=== PATIENT | female | born 1995 | race Caucasian/White ===

== ENCOUNTER → 2017-04-29 | Outpatient (CLI) | payer OTHER ==
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
== END ==
LOC: MRI 14:02
PROVIDERS: ATTEND Specialist
DX: S93.491D Sprain of other ligament of right ankle, subsequent encounter (principal)

== ENCOUNTER 2017-05-24 13:00 | Outpatient (RCR) | payer OTHER | END 2017-05-28 | LOC: PT 13:00 | PROVIDERS: ATTEND Specialist | DX: S93.491D Sprain of other ligament of right ankle, subsequent encounter (principal) ==

== ENCOUNTER 2017-09-15 17:40 | Emergency (ER) | payer OTHER ==
[~2017-09-15] VITALS: Ht 167.6 cm; Wt 70.3 kg
[2017-09-15] MEDS ORDERED: HYDROCODONE/APAP 7.5MG-325MG 1 EA TAB PO PRN (18:00)
[2017-09-15] MEDS ORDERED: ONDANSETRON HCL 4 MG ORAL DISINTEGRATING TAB PO ONE (18:00)
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
--- NOTE | 2017-09-15 19:54 | Diagnostic Imaging Report ---
Examination: CT head without contrast Clinical Indication: Syncope. Technique: Transaxial noncontrast images from the skull base through the vertex were obtained. Sagittal and coronal reformatted images were done. Comparison: None. Findings: Scalp: No abnormalities. Bones: Intact. No fractures. No blastic or lytic lesions. Brain sulci: Appropriate for patient's age. Ventricles: Normal in size and configuration. No hydrocephalus. Extra-axial space: No abnormalities. Parenchyma: No abnormal densities. No masses, hemorrhage, or acute or chronic cortical based vascular insults. Suprasellar region: No abnormalities. Craniocervical junction: The foramen magnum is patent. No Chiari one malformation. Impression: No intracranial abnormality. Signed by: Dr. Renu Centeno M.D. on 09/15/2017 7:51 PM
--- NOTE | 2017-09-15 20:00 | Diagnostic Imaging Report ---
Examination: CT CERVICAL SPINE WITHOUT CONTRAST HISTORY:Neck pain. COMPARISON:None. TECHNIQUE: Multidetector helical axial images were obtained without contrast from the foramen magnum to T1. Coronal and sagittal reformatted images were done. Bone and soft tissue windows were evaluated. FINDINGS: Alignment:Normal alignment with straightening of normal lordosis. Vertebrae: Normal height and density. No acute fracture, infection or neoplasm. Disc space heights: Normal height. Caliber of spinal canal: Developmentally normal. Posterior fossa and craniocervical junction: Foramen magnum patent. No Chiari 1 malformation. Soft tissues: No abnormality. Degenerative changes: No disc bulge/ herniation or foraminal or canal stenosis. IMPRESSION: No abnormalities. Signed by: Dr. Renu Centeno M.D. on 09/15/2017 7:57 PM
== END 2017-09-15 20:24 | disposition home or self-care (01) ==
LOC: ER 17:40
DX: S00.83XA Contusion of other part of head, initial encounter (principal); M54.2 Cervicalgia; S16.1XXA Strain of muscle, fascia and tendon at neck level, initial encounter; R07.89 Other chest pain; M25.531 Pain in right wrist; S80.02XA Contusion of left knee, initial encounter; V43.52XA Car driver injured in collision with other type car in traffic accident, initial encounter; Y92.488 Other paved roadways as the place of occurrence of the external cause
CPT/HCPCS: 70450; 71111; 72125; 81025; 99284

== ENCOUNTER → 2020-11-25 | Day surgery (SDC) | payer OTHER ==
[2020-11-10 09:58] LABS: BASOPHILS # (AUTO) 0.1 (0.0-0.1); BASOPHILS % 0.9 % (0.0-1.0); EOSINOPHILS # (AUTO) 0.2 (0.0-0.4); EOSINOPHILS % 2.9 % (0.0-6.0); HEMATOCRIT 44.7 % (34.2-44.1); HEMOGLOBIN 14.6 g/dL (12.0-16.0); LYMPHOCYTES # (AUTO) 2.4 (1.0-3.2); LYMPHOCYTES % 37.1 % (18.0-39.1); MEAN CORPUSCULAR HGB CONC 32.7 g/dL (31-35); MEAN CORPUSCULAR VOLUME 94.9 fL (81-99); MONOCYTES # (AUTO) 0.4 (0.2-0.8); NEUTROPHILS # (AUTO) 3.4 (2.1-6.9); NEUTROPHILS % 52.8 % (38.7-80.0); PLATELET COUNT 277 x10e3/uL (140-360); RED BLOOD COUNT 4.71 x10e6/uL (3.6-5.1); RED CELL DISTRIBUTION WIDTH 11.6 % (11.7-14.4)
[~2020-11-25] MED LIST: ACETAMINOPHEN 1000 MG/100 ML 100 ML IV ONE; DEXAMETHASONE SOD PHOS INJ 4 MG/ML SDV IV ONE; FENTANYL CITRATE/PF 100MCG/2 ML INJ ONE; HAIR SKIN AND NAILS PO; LIDOCAINE HCL 2% JELLY 5 ML TUBE TOP ONE; LIDOCAINE HCL 2% LOCAL INJ 5 ML SDV VIAL INJ ONE; MEPERIDINE HCL INJ 25 MG/ML VIAL ONE; MIDAZOLAM HCL 2 MG/2 ML VIAL ONE; MULTI-VITAMIN1 EACH PO; ONDANSETRON HCL INJ 2MG/ML 2ML 2 MG/ML VIAL IV ONE; PROPOFOL IV EMULSION 10 MG/ML 20 ML VIAL IV ONE; SEVOFLURANE INHAL SOLN 250 ML PEN BTL INH ONE; [UNRECOGNIZED DRUG - OTHER] PO
[2020-11-25 08:50] VITALS: BP 114/80
== END | disposition home or self-care (01) ==
LOC: OR 05:37
PROVIDERS: ATTEND Obstetrics & Gynecology
DX: Z30.432 Encounter for removal of intrauterine contraceptive device (principal); N84.0 Polyp of corpus uteri; D68.0 Von Willebrand disease; Z01.812 Encounter for preprocedural laboratory examination; Z20.822 Contact with and (suspected) exposure to COVID-19
CPT/HCPCS: 36415; 58562; 81025; 85025; 88305; J0131; J1100; J2001 ×2; J2175; J2250; J2405; J2704; J3010; U0002 ×2